=== PATIENT | female | born 1950 | race American Indian/Alaskan Native ===

== ENCOUNTER 2020-07-01 19:27 | Emergency (ER) | payer BC, MEDICARE, OTHER ==
[2020-07-01] MEDS ORDERED: Heparin Sodium 5,000 Units/ML Vial ONE (19:38)
[2020-07-01] MEDS ORDERED: Aspirin 81 MG Tab.Chew ONE (19:38)
[2020-07-01] MEDS ORDERED: Ticagrelor 90 MG Tab PO ONE (19:40)
[2020-07-01] MEDS ORDERED: Heparin Sodium/D5W 500 ML ONE (19:41)
[2020-07-01] MEDS ORDERED: Heparin Sodium 5,000 Units/ML Vial IVPUSH ONE (19:44)
[2020-07-01] MEDS ORDERED: Aspirin 81 MG Tab.Chew PO ONE (19:44)
[2020-07-01] MEDS ORDERED: Heparin Sodium/D5W 25,000 UNITS/500 ML BAG IV SCH (19:45)
[2020-07-01] MEDS ORDERED: Clopidogrel 75 MG Tab PO ONE (19:45)
[2020-07-01] MEDS ORDERED: Labetalol 20 MG/4 ML Syringe IVPUSH ONE (19:45)
[2020-07-01] MEDS ORDERED: Clopidogrel 75 MG Tab ONE (19:46)
[2020-07-01] MEDS ORDERED: Tenecteplase 50 MG Kit IV ONE (19:47)
--- NOTE | 2020-07-01 20:04 | EDM.PDOC ---
ED HPI GENERAL MEDICAL PROBLEM - General Chief Complaint: Cardiovascular Problem Stated Complaint: CHEST PAIN Time Seen by Provider: 07/01/20 19:35 Source of Information: Reports: Patient History Limitations: Reports: No Limitations - History of Present Illness INITIAL COMMENTS - FREE TEXT/NARRATIVE: 69-year-old female developed chest pain 45 minutes ago, cold sweat and nausea. Pain is radiating up the back of her neck and into the left shoulder. No pleuritic pain. She is very healthy, no history of cardiac problems or diabetes. Onset: Sudden Duration: Minutes: (45 minutes ago) Location: Reports: Chest Chest Pain Score (Numeric/FACES): 7 - Related Data Allergies Allergy/AdvReac Type Severity Reaction Status Date / Time No Known Allergies Allergy Verified 07/01/20 20:13 Home Meds: Home Meds Cyclobenzaprine [Flexeril] 1 tab PO DAILY 03/05/14 [History] DULoxetine [Cymbalta] 1 cap PO DAILY 03/05/14 [History] Omeprazole 1 cap PO DAILY 03/05/14 [History] ED ROS GENERAL - Review of Systems Review Of Systems: See Below Constitutional: Denies: Fever, Chills Respiratory: Reports: Shortness of Breath Cardiovascular: Reports: Chest Pain. Denies: Palpitations GI/Abdominal: Reports: Nausea. Denies: Abdominal Pain, Vomiting : Reports: No Symptoms Skin: Reports: Diaphoresis ED EXAM, GENERAL - Physical Exam Exam: See Below Exam Limited By: No Limitations General Appearance: Alert, Anxious, Other (Looks uncomfortable but not distressed) Head: Atraumatic Respiratory/Chest: No Respiratory Distress, Lungs Clear Cardiovascular: Regular Rate, Rhythm GI/Abdominal: Non-Tender Extremities: No: Pedal Edema Neurological: Alert, Oriented Psychiatric: Normal Affect, Normal Mood Skin Exam: Diaphoretic #1 Interpretation EKG Date: 07/01/20 Time: 19:35 ST-T: Elevated (Inferior leads) Course - Vital Signs Last Recorded V/S: Last Vital Signs Temp 97.1 F 07/01/20 20:11 Pulse 67 07/01/20 20:11 Resp 17 07/01/20 20:11 BP 148/77 H 07/01/20 20:11 Pulse Ox 94 L 07/01/20 20:11 - Orders/Labs/Meds Orders: Active Orders 24 hr Category Date Time Status EKG 12 Lead [EK] Routine Ther 07/01/20 19:35 Ordered Labs: Laboratory Tests 07/01/20 07/01/20 Range/Units 19:45 19:54 WBC 16.2 H (4.5-11.0) K/uL RBC 5.25 (3.30-5.50) M/uL Hgb 13.9 (12.0-15.0) g/dL Hct 43.9 (36.0-48.0) % MCV 84 (80-98) fL MCH 27 (27-31) pg MCHC 32 (32-36) % Plt Count 373 (150-400) K/uL Neut % (Auto) 73 H (36-66) % Lymph % (Auto) 20 L (24-44) % [place] % (Auto) 5 (2-6) % Eos % (Auto) 2 (2-4) % Baso % (Auto) 1 (0-1) % Sodium 144 (140-148) mmol/L Potassium 3.3 L (3.6-5.2) mmol/L Chloride 104 (100-108) mmol/L Carbon Dioxide 28 (21-32) mmol/L Anion Gap 15.3 H (5.0-14.0) mmol/L BUN 22 H (7-18) mg/dL Creatinine 0.8 (0.6-1.0) mg/dL Est Cr Clr Drug Dosing 53.97 mL/min Estimated GFR (MDRD) > 60 (>60) Glucose 172 H (74-106) mg/dL Calcium 9.7 (8.5-10.1) mg/dL Troponin I 0.043 (0.000-0.056) ng/mL Meds: Medications Discontinued Medications Generic Name Dose Route Start Last Admin Trade Name Freq PRN Reason Stop Dose Admin Alteplase, Recombinant Confirm 07/01/20 19:47 Activase Administered 07/01/20 19:48 Dose 100 mg .ROUTE .STK-MED ONE Aspirin Confirm 07/01/20 19:38 Aspirin Administered 07/01/20 19:39 Dose 324 mg .ROUTE .STK-MED ONE Aspirin 324 mg 07/01/20 19:44 07/01/20 19:57 Aspirin PO 07/01/20 19:45 324 mg ONETIME ONE Administration Clopidogrel Bisulfate 225 mg 07/01/20 19:45 07/01/20 19:56 Plavix PO 07/01/20 19:46 225 mg ONETIME ONE Administration Clopidogrel Bisulfate Confirm 07/01/20 19:46 Plavix Administered 07/01/20 19:47 Dose 225 mg .ROUTE .STK-MED ONE Heparin Sodium (Porcine) Confirm 07/01/20 19:38 Heparin Sodium Administered 07/01/20 19:39 Dose 5,000 units .ROUTE .STK-MED ONE Heparin Sodium (Porcine) 4,000 units 07/01/20 19:44 07/01/20 19:57 Heparin Sodium IVPUSH 07/01/20 19:45 4,000 units .BOLUS ONE Administration Heparin Sodium/Dextrose Confirm 07/01/20 19:41 07/01/20 20:09 Heparin 25,000 Units In D5w 500 Ml Administered 07/01/20 19:42 16 mls/hr Dose Administration 500 mls @ as directed .ROUTE .STK-MED ONE Heparin Sodium/Dextrose 25,000 units in 500 mls @ 16 mls/hr 07/01/20 19:45 Heparin 25,000 Units In D5w 500 Ml IV TITRATE [facility]INT Protocol 800 UNITS/HR Labetalol HCl 10 mg 07/01/20 19:45 07/01/20 20:08 Normodyne IVPUSH 07/01/20 19:46 10 mg ONETIME ONE Administration Protocol Tenecteplase 50 mg 07/01/20 19:47 07/01/20 20:08 Tnkase IV 07/01/20 19:48 50 mg ONETIME ONE Administration Protocol Ticagrelor Confirm 07/01/20 19:40 Brilinta Administered 07/01/20 19:41 Dose 90 mg PO .STK-MED ONE - Re-Assessments/Exams Free Text/Narrative Re-Assessment/Exam: 07/01/20 20:03 Patient is having acute STEMI. She was given 324 mg of chewable aspirin, 225 mg of oral Plavix and cardiology was consulted in [place]. They asked if we would give 40 mg of TNKase and start a heparin drip after a bolus. She had no contraindications except her systolic blood pressure was 218 so we had to give 10 of labetalol prior to the to the TNKase. Systolic was 148 at time of TNKase administration. EMS is here for urgent transportation to [place]. 07/01/20 20:32 Troponin returned within normal limits, white count 16,000, glucose 172 and potassium 3.3, other labs reassuring. 07/01/20 20:33 Kidney function looks normal. Departure - Departure Time of Disposition: 20:28 Disposition: DC/Tfer to Acute Hospital 02 Reason for Transfer *Q: Primary PCI Indicated Clinical Impression: STEMI (ST elevation myocardial infarction) Qualifiers: Involved coronary artery: unspecified coronary artery Qualified Code(s): I21.3 - ST elevation (STEMI) myocardial infarction of unspecified site Referrals: PCP,None [Primary Care Provider] - Forms: ED Department Discharge Care Plan Goals: Patient was urgently transferred to [facility] for interventional cardiology. [facility] Critical Care Note - Critical Care Note Total Time (mins): 30 Sepsis Event Note (ED) - Focused Exam Vital Signs: Vital Signs Temp Pulse Resp BP Pulse Ox 07/01/20 20:11 97.1 F 67 17 148/77 H 94 L 07/01/20 20:02 67 148/77 H 07/01/20 19:59 96 17 188/92 H 94 L 07/01/20 19:41 91 16 218/115 H 96 07/01/20 19:36 97.1 F 99 21 H 213/109 H 94 L - My Orders Last 24 Hours: My Active Orders 07/01/20 19:35 EKG 12 Lead [EK] Routine - Assessment/Plan Last 24 Hours: My Active Orders 07/01/20 19:35 EKG 12 Lead [EK] Routine
== END 2020-07-01 20:29 ==
LOC: JP.ED 19:27
DX: I21.3 ST elevation (STEMI) myocardial infarction of unspecified site (principal)
CPT/HCPCS: 36415; 37195; 80048; 84484; 85025; 93005; 96374; 96375; 99285-25; 99291; A9270-GY; J1644; J3101; J3490